=== PATIENT | female | born 1995 | race Caucasian/White ===

== ENCOUNTER → 2023-05-10 13:30 | Outpatient (BNV) | payer OTHER, SELFPAY | PROVIDERS: Visit Provider Psychiatry & Neurology Psychiatry | DX: F32.1 Major depressive disorder, single episode, moderate (principal); F43.12 Post-traumatic stress disorder, chronic | CPT/HCPCS: 90792; 99213 ==

== ENCOUNTER 2023-05-23 13:30 | Outpatient (RCR) | payer OTHER, SELFPAY ==
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
[2023-05-10 13:12] VITALS: BP 110/60; PULSE 80; TEMP 37.4
[2023-05-10 13:16] VITALS: BMI 24.1
--- NOTE | 2023-05-10 14:57 | PC.ADMIT ---
Patient is a 27 year old female with a DX of MDD, DWAYNE, and PTSD who was referred to [facility] by her therapist d/t increased depression with passive SI (denied plan or intent), frequent crying, feeling overwhelmed with panic and daily tasks along with self care. She recently left her job and transitioned back to [facility]. She currently lives with two roommates who she states are supportive. 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 She moved to [facility] 6 weeks ago. Currently patient is alert and oriented x4. Calm and cooperative. Presented with depressed mood and anxious affect. Reports passive SI stating, I have passive thoughts but I've never acted on them, never . Denied any plans or intent to kill herself. Sometimes when I get really sad I feel a lot of pressure in my head and have hit my head in the past . 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 She reports she is able to reach out to friends when feeling strong emotions or go for a run. Patient stated, I felt intensely sad last week and went for a run and felt better . I gave Rossy a copy of her safety plan if needed and I reviewed the plan with her. Patient is not on any medications currently.
--- NOTE | 2023-05-12 17:53 | HO.PHP ---
Clients case was reviewed and opened today in treatment team.
--- NOTE | 2023-05-16 16:33 | HO.PHP ---
PHP staff faxed over the referral for Rossy Marmolejo, for a med provider through [facility].
--- NOTE | 2023-05-18 17:41 | HO.PHP ---
[facility] staff received a phone call from [facility], in which they provided a scheduled appointment for Rossy to continue with a med provider. The appointment date and time is June 21, 2023 at 11 AM with Rufina Michel. This will be a virtual appointment.
--- NOTE | 2023-05-19 08:42 | HO.PHP ---
[facility] staff member reached out to Rossy's OP therapist, Lynsey. PHP staff member left a VM and informed her of Rossy's attendance and when she will be discharging. PHP staff member also disclosed how she is participating within the group setting. PHP staff member encouraged her to reach out if she has any additional questions.
--- NOTE | 2023-05-19 15:41 | HO.PHPPROGNO ---
Subjective Subjective Date of Service: 05/19/23 Reason For Visit: PTSD,depression Interim History: Patient seen for follow-up today. Was last seen Rossy ?Page? is interested in talking to this provider regarding medication. She initially agreed to take medication although she was hesitant to start on the citalopram for a number of reasons including swallowing difficulties. She has not started this medication. She admits she had initially had some reservation about whether she actually needed it, noting it has been PTSD that she has been dealing with for many years, and only during her stay here, has this experience informed her that she is in fact depressed. She opting to switch over to a liquid antidepressant to facilitate adherence. She reports mood still low but denies any issues with SI. Appetite was low upon intake but is better now. Has been also taking vit B12. Sleep intact. Mental Status Exam Mental Status Exam Narrative: Alert, oriented and pleasant. Normal speech. Good eye contact. Affect is appropriate and varied. No signs of psychosis. Cognitively is intact. Denies SI/HI. Judgment is intact Diagnostics Vital Signs (24Hr): BMI result Body Mass Index 24.1 Assessment & Plan Assessment & Plan (1) Major depression: Status: Acute Code(s): F32.9 - Major depressive disorder, single episode, unspecified (2) PTSD (post-traumatic stress disorder): Status: Acute Code(s): F43.10 - Post-traumatic stress disorder, unspecified Plan Discont citalopram (not trialed), start escitalopram 5 mg/ 5mL liquid ? start 5 mg (=5mL) daily. We discussed increasing to 10 mg (10 mL) next week if tolerated. Certification I certify that partial hospital treatment is medically necessary due to the symptoms and problems resulting from the patient's mental illness and the failure to treat the patient at the partial hospital level of care would likely result in the patient requiring inpatient psychiatric care which could not be prevented at a less intensive level of care. Total time managing care of this patient today __30__ minutes. Discharge Plan Discharge Attending provider: Charbel Ruiz Additional Instructions: Rossy's appointment with her med provider, Rufina Michel, will be on June 21, 2023 at 11 AM. This meeting is being held virtually through [facility]. Medications: New escitalopram oxalate 5 mg/5 mL solution 5 mg PO DAILY Qty: 240 0RF Rx Instructions: take 5 mL (5 mg) po qd for 14 days, then increase dose to 10 mL (10 mg) qd Stand Alone Forms: Patient Portal Discharge page
--- NOTE | 2023-05-23 16:06 | P.PNPSP_ITS ---
Subjective Subjective Date of Service: 05/23/23 Reason For Visit: PTSD,depression Interim History: Patient seen today, is scheduled for discharge at the end of program today. Patient is a little anxious, but otherwise euthymic. Denies any SI. No agitation or psychosis. Looking forward to a number of things this week. She has been compliant on the medication. SHe is at half the dose for the first week, then can increase to the lowest therapeutic dose (of 10 mg, ie 10 mL). If she continues to feel as well (euthymic) as she is feeling now, she may continue at 7.5 mg (7.5 mL) Has found the taste of liquid escitalopram to be very tolerable and is very pleased this worked out. She denies any acute issues or concerns. Medication Compliance: Yes Side effects from medications: No Review of Systems Acute medical concerns: No Mental Status Exam Mental Status Exam Narrative: Alert, oriented and In no acute distress. Pleasant, engaging. Normal speech. Normal eye contact. Mood is euthymic. Affect full range reactive. No signs of psychosis. No delusions. She denies any SI/HI. Cognition grossly intact. Insight adequate, judgment is intact Diagnostics Vital Signs (24Hr): BMI result Body Mass Index 24.1 Assessment & Plan Certification I certify that partial hospital treatment is medically necessary due to the symptoms and problems resulting from the patient's mental illness and the failure to treat the patient at the partial hospital level of care would likely result in the patient requiring inpatient psychiatric care which could not be prevented at a less intensive level of care. Total time managing care of this patient today __30__ minutes. Discharge Plan Discharge Attending provider: Charbel Ruiz Additional Instructions: Rossy's appointment with her med provider, Rufina Michel, will be on June 21, 2023 at 11 AM. This meeting is being held virtually through [facility]. Rossy has an appointment with her OP therapist, Lynsey Forrest, on May 24, 2023 at 10 AM. Appointment with [facility] at [address] Office # [phone] on May 24, 2023 at 8:00 am with [facility]. [address] [place] [address]. Office # [phone]. New patient Appointment September 16, 2023 at 8:00am with Julienne Teran. Medications: New escitalopram oxalate 5 mg/5 mL solution 5 mg PO DAILY Qty: 240 0RF Rx Instructions: take 5 mL (5 mg) po qd for 14 days, then increase dose to 10 mL (10 mg) qd escitalopram oxalate 5 mg/5 mL solution 10 mg PO DAILY 30 Days Qty: 300 0RF Stand Alone Forms: Patient Portal Discharge page Patient Education: Depression (DC) Telehealth Telehealth Location of provider rendering services: other (private office) Location of patient: other (at [facility]) Patient Identification confirmed using: Name, : Yes Telehealth method: video Minutes spent on Phone/Video with Pt.: 30
== END 2023-05-23 23:59 | disposition home or self-care (01) ==
LOC: HO.PHPA 13:30
PROVIDERS: Visit Provider Psychiatry & Neurology Psychiatry
DX: F43.10 Post-traumatic stress disorder, unspecified (principal); F32.9 Major depressive disorder, single episode, unspecified
CPT/HCPCS: 90791; 90853